=== PATIENT | female | born 1950 | race Caucasian/White ===

== ENCOUNTER → 2016-12-19 | Outpatient (CLI) | payer OTHER ==
[~2016-12-19] MED LIST: ESOM20CA PO; LEVO112T2 PO; METH10TA6 PO
[2016-12-19 12:44] LABS: HEMATOCRIT 43.4 % (34.6-47.8); HEMOGLOBIN 14.5 g/dL (11.7-16.4); WHITE BLOOD COUNT 6.2 x10^3/uL (3.4-10)
[2016-12-19 13:06] LABS: ASPARTATE AMINO TRANSFERASE 16 U/L (15-37); BLOOD UREA NITROGEN 20 mg/dL (7-18)
== END | disposition home or self-care (01) ==
LOC: CFH 07:00
PROVIDERS: ATTEND Family Medicine
DX: E03.2 Hypothyroidism due to medicaments and other exogenous substances (principal); R73.9 Hyperglycemia, unspecified; R53.83 Other fatigue
CPT/HCPCS: 36415; 80053; 80061; 84439; 84443; 84481; 85025

== ENCOUNTER → 2017-06-05 | Outpatient (CLI) | payer OTHER ==
[2017-06-05 12:56] LABS: FREE T4 (FREE THYROXINE) 1.33 ng/dL (0.76-1.46); THYROID STIMULATING HORMONE 3.3 mIU/L (0.358-3.740)
== END | disposition home or self-care (01) ==
LOC: CFH 07:04
PROVIDERS: ATTEND Family Medicine
DX: E03.2 Hypothyroidism due to medicaments and other exogenous substances (principal)
CPT/HCPCS: 36415; 84439; 84443

== ENCOUNTER 2019-04-21 06:21 | Emergency (ER) | payer OTHER ==
[~2019-04-21] VITALS: Ht 170.2 cm; Wt 48.0 kg
[2019-04-21 06:25] VITALS: BP 154/82
--- NOTE | 2019-04-21 06:54 | NUR ---
report given to gurmeet rojas
--- NOTE | 2019-04-21 07:00 | NUR ---
RECEIVED REPORT FROM [facility]. PT UPRIGHT ON GURNEY AWAKE & COMFORTABLE WITH RLE ELEVATED, RESPONDS APPROP TO STAFF, NAD AT REST, COMFORT MEASURES PROVIDED, CALL LIGHT WITHIN REACH.
[2019-04-21 07:10] LABS: ALBUMIN 2.9 g/dL (3.4-5.0); ANION GAP 8 mmol/L (5-15); CALCIUM 9.1 mg/dL (8.5-10.1); CHLORIDE 106 mmol/L (98-107)
[2019-04-21 07:23] LABS: ALANINE AMINOTRANSFERASE 12 U/L (12-78); ALKALINE PHOSPHATASE 98 U/L (45-117); BILIRUBIN,TOTAL 0.4 mg/dL (0.2-1.0); CREATININE 1.52 mg/dL (0.55-1.02); TOTAL PROTEIN 8.2 g/dL (6.4-8.2)
[2019-04-21 07:32] LABS: MEAN CORPUSCULAR HEMOGLOBIN 24.4 pg (27.0-34.8); MEAN CORPUSCULAR HGB CONC 31.4 g/dL (32.4-35.8); MEAN CORPUSCULAR VOLUME 77.7 fL (80-100); MEAN PLATELET VOLUME 8.4 fL (7.4-10.4); PLATELET COUNT 419 x10^3/uL (130-400); RED BLOOD COUNT 4.66 x10^6/uL (3.82-5.3); RED CELL DISTRIBUTION WIDTH 23.2 % (9.6-15.2)
[2019-04-21 07:55] LABS: ANISOCYTOSIS 1+; BASOPHILS # (AUTO) 0.05 x10^3/uL (0-0.1); BASOPHILS % (AUTO) 0 % (0-1); EOSINOPHILS # (AUTO) 0.11 x10^3/uL (0-0.4); EOSINOPHILS % (AUTO) 1 % (1-7); HYPOCHROMIA 1+; LYMPHOCYTES # (AUTO) 1.29 x10^3/uL (1-3.4); LYMPHOCYTES % (AUTO) 10 % (22-44); MD MORPH REVIEW ONLY; MICROCYTOSIS 1+; MONOCYTES # (AUTO) 0.94 x10^3/uL (0.2-0.8); MONOCYTES % (AUTO) 7 % (2-9); NEUTROPHILS # (AUTO) 10.26 x10^3/uL (1.8-6.8); NEUTROPHILS % (AUTO) 81 % (42-75)
[2019-04-21 07:56] LABS: <PLATELET ESTIMATE> INCREASED; <PLT MORPHOLOGY> NORMAL PLT MORPH; OVALOCYTES 1+
--- NOTE | 2019-04-21 08:44 | NUR ---
Patient given discharge instructions and Rx, they have confirmed that they understand the instructions. Patient ambulatory with steady gait.
== END 2019-04-21 08:48 | disposition home or self-care (01) ==
LOC: ED 07:24
DX: L03.115 Cellulitis of right lower limb (principal); J44.9 Chronic obstructive pulmonary disease, unspecified; F17.210 Nicotine dependence, cigarettes, uncomplicated; M79.661 Pain in right lower leg
CPT/HCPCS: 36415; 80053; 84439; 84443; 84550; 85025; 99284

== ENCOUNTER → 2019-05-20 | Outpatient (CLI) | payer OTHER ==
[2019-05-20 13:04] LABS: MICROSCOPIC AUTO
[2019-05-20 13:06] LABS: CHLORIDE 104 mmol/L (98-107); CULTURE INDICATED? YES
[2019-05-20 13:20] LABS: HCT (SEDRATE) 38.3 % (34.6-47.8)
[2019-05-20 13:21] LABS: BASOPHILS # (AUTO) 0.04 x10^3/uL (0-0.1); BASOPHILS % (AUTO) 1 % (0-1); EOSINOPHILS % (AUTO) 2 % (1-7); LYMPHOCYTES # (AUTO) 1.24 x10^3/uL (1-3.4); LYMPHOCYTES % (AUTO) 13 % (22-44); MD NO; MEAN CORPUSCULAR HEMOGLOBIN 24.7 pg (27.0-34.8); MEAN CORPUSCULAR HGB CONC 32.3 g/dL (32.4-35.8); MEAN CORPUSCULAR VOLUME 76.5 fL (80-100); MEAN PLATELET VOLUME 9.1 fL (7.4-10.4); MONOCYTES # (AUTO) 0.38 x10^3/uL (0.2-0.8); MONOCYTES % (AUTO) 4 % (2-9); NEUTROPHILS # (AUTO) 7.42 x10^3/uL (1.8-6.8); NEUTROPHILS % (AUTO) 80 % (42-75); PLATELET COUNT 361 x10^3/uL (130-400); RED BLOOD COUNT 4.92 x10^6/uL (3.82-5.3); RED CELL DISTRIBUTION WIDTH 21.1 % (9.6-15.2)
[2019-05-20 13:39] LABS: % IRON SATURATION 4 % (20-55); ALANINE AMINOTRANSFERASE 12 U/L (12-78); ALBUMIN 3.3 g/dL (3.4-5.0); ALKALINE PHOSPHATASE 103 U/L (45-117); ANION GAP 5 mmol/L (5-15); BILIRUBIN,TOTAL 0.3 mg/dL (0.2-1.0); CALCIUM 9.2 mg/dL (8.5-10.1); CREATININE 1.48 mg/dL (0.55-1.02); FOLATE LEVEL 5.4 ng/mL (3.1-17.5); FREE T4 (FREE THYROXINE) 1.13 ng/dL (0.76-1.46); IRON LEVEL 17 mcg/dL (50-170); TOTAL IRON BINDING CAPACITY 378 mcg/dL (250-450); TOTAL PROTEIN 8.4 g/dL (6.4-8.2)
== END | disposition home or self-care (01) ==
LOC: CFH 06:45
PROVIDERS: ATTEND Family Medicine
DX: M25.571 Pain in right ankle and joints of right foot (principal); E03.2 Hypothyroidism due to medicaments and other exogenous substances; D64.9 Anemia, unspecified; I10 Essential (primary) hypertension; R13.10 Dysphagia, unspecified
CPT/HCPCS: 36415; 80053; 81001; 82607; 82728; 82746; 83540; 83550; 84439; 84443; 84550; 85025; 85651; 86038; 86430; 87077; 87086

== ENCOUNTER → 2019-08-20 | Outpatient (CLI) | payer OTHER ==
[~2019-08-20] MED LIST changes: +OMNIPAQUE 350 MG/ML, 100ML BOTTLE ONE
== END | disposition home or self-care (01) ==
LOC: RAD 12:03
PROVIDERS: ATTEND Family Medicine
DX: N13.4 Hydroureter (principal); N13.30 Unspecified hydronephrosis; N20.0 Calculus of kidney
CPT/HCPCS: 74177; Q9967

== ENCOUNTER → 2019-08-20 | Outpatient (CLI) | payer OTHER ==
[~2019-08-20] MED LIST changes: -OMNIPAQUE 350 MG/ML, 100ML BOTTLE ONE
[2019-08-20 12:03] LABS: BASOPHILS # (AUTO) 0.11 x10^3/uL (0-0.1); BASOPHILS % (AUTO) 1 % (0-1); EOSINOPHILS % (AUTO) 2 % (1-7); LYMPHOCYTES # (AUTO) 1.29 x10^3/uL (1-3.4); LYMPHOCYTES % (AUTO) 14 % (22-44); MD NO; MEAN CORPUSCULAR HEMOGLOBIN 24.1 pg (27.0-34.8); MEAN CORPUSCULAR HGB CONC 32.5 g/dL (32.4-35.8); MEAN PLATELET VOLUME 8.6 fL (7.4-10.4); MONOCYTES # (AUTO) 0.29 x10^3/uL (0.2-0.8); MONOCYTES % (AUTO) 3 % (2-9); NEUTROPHILS # (AUTO) 7.58 x10^3/uL (1.8-6.8); NEUTROPHILS % (AUTO) 80 % (42-75); PLATELET COUNT 368 x10^3/uL (130-400); RED CELL DISTRIBUTION WIDTH 21.6 % (9.6-15.2)
[2019-08-20 12:04] LABS: HCT (SEDRATE) 37.5 % (34.6-47.8)
[2019-08-20 12:14] LABS: ALANINE AMINOTRANSFERASE 13 U/L (12-78); ALBUMIN 2.9 g/dL (3.4-5.0); ANION GAP 6 mmol/L (5-15); CALCIUM 8.6 mg/dL (8.5-10.1); CHLORIDE 110 mmol/L (98-107); CREATININE 1.26 mg/dL (0.55-1.02); IRON LEVEL 27 mcg/dL (50-170)
[2019-08-20 12:22] LABS: % IRON SATURATION 8 % (20-55); ALKALINE PHOSPHATASE 85 U/L (45-117); BILIRUBIN,TOTAL 0.4 mg/dL (0.2-1.0); FREE T4 (FREE THYROXINE) 1.42 ng/dL (0.76-1.46); TOTAL IRON BINDING CAPACITY 359 mcg/dL (250-450); TOTAL PROTEIN 7.9 g/dL (6.4-8.2)
== END | disposition home or self-care (01) ==
LOC: CFH 10:35
PROVIDERS: ATTEND Family Medicine
DX: D50.0 Iron deficiency anemia secondary to blood loss (chronic) (principal); R63.4 Abnormal weight loss; E03.2 Hypothyroidism due to medicaments and other exogenous substances; E87.0 Hyperosmolality and hypernatremia; R10.31 Right lower quadrant pain
CPT/HCPCS: 36415; 80053; 83540; 83550; 84439; 84443; 85025; 85651

== ENCOUNTER 2019-09-22 07:08 | Outpatient (CLI) | payer OTHER ==
[2019-09-22] MEDS ORDERED: GADOTERATE 7.5 MMOL/15 ML SYR ONE (08:34)
[2019-10-07] MEDS ORDERED: Vitamin C PO (09:41)
[2019-10-07] MEDS ORDERED: Iron PO (09:41)
[2019-10-07] MEDS ORDERED: Vitamin B PO (09:41)
== END 2019-09-22 23:59 | disposition home or self-care (01) ==
LOC: RAD 07:08
PROVIDERS: ATTEND Family Medicine
DX: N85.2 Hypertrophy of uterus (principal); D48.1 Neoplasm of uncertain behavior of connective and other soft tissue; K57.30 Diverticulosis of large intestine without perforation or abscess without bleeding
CPT/HCPCS: 72197; A9575

== ENCOUNTER 2019-10-08 10:12 | Day surgery (SDC) | payer OTHER ==
[~2019-10-08] VITALS: Ht 170.2 cm; Wt 48.8 kg
[~2019-10-08 10:12] MED LIST changes: +Iron PO; +Vitamin B PO; +Vitamin C PO
[2019-10-08] MEDS ORDERED: CHLORHEXIDINE 15 ML UDC ONE (10:53)
[2019-10-08 11:07] VITALS: BP 168/84
[2019-10-08] MEDS ORDERED: CHLORHEXIDINE 15 ML UDC MM ONE (11:30)
[2019-10-08] MEDS ORDERED: IBUP200C8 PO (11:38)
[2019-10-08 12:02] VITALS: BP 168/84
[2019-10-08] MEDS ORDERED: MIDAZOLAM 1 MG/ML, 2ML ONE (13:09)
[2019-10-08] MEDS ORDERED: FENTANYL PF 250 MCG/5ML ONE (13:10)
[2019-10-08] MEDS ORDERED: PROPOFOL 10 MG/ML, 20ML ONE (13:13)
[2019-10-08] MEDS ORDERED: CEFAZOLIN 1,000 MG ONE (13:13)
[2019-10-08] MEDS ORDERED: ONDANSETRON 2MG/ML, 2ML ONE ×2 (13:13→15:39)
[2019-10-08] MEDS ORDERED: SUCCINYLCHOLINE 20 MG/ML, 10ML ONE (13:13)
[2019-10-08] MEDS ORDERED: DEXAMETHASONE 4 MG/ML, 1ML ONE (13:13)
[2019-10-08] MEDS ORDERED: ALBUTEROL SULFATE 2.5 MG/3 ML NPPB PRN (14:30)
[2019-10-08] MEDS ORDERED: HYDROmorphone 1 MG/ML, 1ML INJ IVPush PRN (14:30)
[2019-10-08] MEDS ORDERED: hydrALAzine 20 MG/ML, 1ML IV PRN (14:30)
[2019-10-08] MEDS ORDERED: MIDAZOLAM 1 MG/ML, 2ML IV PRN (14:30)
[2019-10-08] MEDS ORDERED: LABETALOL 5MG/ML, 20ML IV PRN (14:30)
[2019-10-08] MEDS ORDERED: PROMETHAZINE 25 MG/ML, 1ML IVPush PRN (14:30)
[2019-10-08] MEDS ORDERED: OXYcodone 5 MG/5 ML ORAL.SOL UDC PO PRN (14:30)
[2019-10-08] MEDS ORDERED: DIAZEPAM 5 MG/ML, 2ML IVPush PRN (14:30)
[2019-10-08] MEDS ORDERED: DIPHENHYDRAMINE 50 MG/ML, 1ML IVPush PRN (14:30)
[2019-10-08] MEDS ORDERED: PROMETHAZINE 12.5 MG SUPP PR PRN (14:30)
[2019-10-08] MEDS ORDERED: MEPERIDINE/PF 25MG/0.5ML IVPush PRN (14:30)
[2019-10-08] MEDS ORDERED: EPHEDRINE 50 MG/ML, 1ML IVPush PRN (14:30)
[2019-10-08] MEDS ORDERED: FENTANYL PF 100 MCG/2ML IV PRN (14:30)
[2019-10-08] MEDS ORDERED: ONDANSETRON 2MG/ML, 2ML IVPush PRN (14:30)
[2019-10-08] MEDS ORDERED: ONDANSETRON 2MG/ML, 2ML IV PRN (15:00)
[2019-10-08] MEDS ORDERED: HYDROcodone/APAP 5/325 TABLET PO PRN (15:00)
[2019-10-08] MEDS ORDERED: FENTANYL PF 100 MCG/2ML ONE (15:07)
== END 2019-10-08 17:02 | disposition home or self-care (01) ==
LOC: OUT 10:12 → 4NE 16:03 → OUT 17:02
PROVIDERS: ATTEND Urology
DX: N20.1 Calculus of ureter (principal); Z11.59 Encounter for screening for other viral diseases; N13.5 Crossing vessel and stricture of ureter without hydronephrosis; K21.9 Gastro-esophageal reflux disease without esophagitis; F17.210 Nicotine dependence, cigarettes, uncomplicated; J44.9 Chronic obstructive pulmonary disease, unspecified; Z88.5 Allergy status to narcotic agent; Z88.0 Allergy status to penicillin; Z88.8 Allergy status to other drugs, medicaments and biological substances; Z88.1 Allergy status to other antibiotic agents; Z88.2 Allergy status to sulfonamides; Z79.899 Other long term (current) drug therapy; Z82.49 Family history of ischemic heart disease and other diseases of the circulatory system; Z80.1 Family history of malignant neoplasm of trachea, bronchus and lung; Z72.89 Other problems related to lifestyle; Z90.710 Acquired absence of both cervix and uterus
CPT/HCPCS: 52354; 74420; 87635; 88305; 93005; C1758; J0330; J0690; J1100; J2250; J2405; J2704; J3010; G0378

== ENCOUNTER → 2019-12-02 | Outpatient (CLI) | payer OTHER ==
[~2019-12-02] MED LIST changes: +ASCO500T8 PO; +CYAN1TAB29 PO; +IBUP200C8 PO; +IPRA4AER INH; +LEVO175T5 PO
[2019-12-02 12:39] LABS: MICROSCOPIC NOT IND
== END | disposition home or self-care (01) ==
LOC: STAR 10:58
PROVIDERS: ATTEND Urology
DX: Z01.818 Encounter for other preprocedural examination (principal); Z20.828 Contact with and (suspected) exposure to other viral communicable diseases; N13.30 Unspecified hydronephrosis
CPT/HCPCS: 36415; 81003; 87086; 87635; 93005

== ENCOUNTER 2019-12-06 06:46 | Day surgery (SDC) | payer OTHER ==
[~2019-12-06] VITALS: Ht 170.2 cm; Wt 49.4 kg
[2019-12-06] MEDS ORDERED: CEFAZOLIN PMX 1GM/50ML 50 ML IV STA (07:27)
[2019-12-06] MEDS ORDERED: SODIUM CHLORIDE 0.9% 1,000 ML IV SCH (07:27)
[2019-12-06 07:28] VITALS: BP 147/70
[2019-12-06 07:32] VITALS: BP 147/70
[2019-12-06] MEDS ORDERED: CHLORHEXIDINE 15 ML UDC ONE (07:37)
[2019-12-06] MEDS ORDERED: MIDAZOLAM 1 MG/ML, 5ML ONE (08:59)
[2019-12-06] MEDS ORDERED: NALOXONE 1 MG/ML, 2ML ONE (08:59)
[2019-12-06] MEDS ORDERED: FLUMAZENIL 0.1 MG/1 ML, 5ML ONE (08:59)
[2019-12-06] MEDS ORDERED: FENTANYL PF 100 MCG/2ML ONE ×2 (08:59)
[2019-12-06] MEDS ORDERED: LIDOCAINE 1%, 20ML ONE (09:09)
[2019-12-06] MEDS ORDERED: CHLORHEXIDINE 15 ML UDC MM ONE (11:00)
[2019-12-06] MEDS ORDERED: LACTATED RINGERS 1,000 ML IV ONE (11:00)
[2019-12-06] MEDS ORDERED: OXYcodone IR 5MG TABLET PO ONE (11:04)
[2019-12-06] MEDS ORDERED: ACETAMINOPHEN 500 MG TABLET PO STA (11:04)
[2019-12-06] MEDS ORDERED: FENTANYL PF 250 MCG/5ML ONE (12:47)
[2019-12-06] MEDS ORDERED: CEFTRIAXONE 1,000 MG ONE (12:56)
[2019-12-06] MEDS ORDERED: ONDANSETRON 2MG/ML, 2ML ONE (14:00)
[2019-12-06] MEDS ORDERED: SUCCINYLCHOLINE 20 MG/ML, 10ML ONE (14:00)
[2019-12-06] MEDS ORDERED: NEOSTIGMINE 1 MG/ML, 10ML ONE (14:00)
[2019-12-06] MEDS ORDERED: SUGAMMADEX 200 MG/2 ML IVPush ONE (14:00)
[2019-12-06] MEDS ORDERED: DEXAMETHASONE 4 MG/ML, 1ML ONE (14:00)
[2019-12-06] MEDS ORDERED: PROPOFOL 10 MG/ML, 20ML ONE (14:00)
[2019-12-06] MEDS ORDERED: CEFAZOLIN 1,000 MG ONE (14:00)
[2019-12-06] MEDS ORDERED: GLYCOPYRROLATE 0.2MG/1ML, 5ML ONE (14:00)
[2019-12-06] MEDS ORDERED: ROCURONIUM 10MG/ML,5ML ONE (14:00)
[2019-12-06] MEDS ORDERED: OMNIPAQUE 350 MG/ML, 50 ML BOTTLE ONE (14:15)
[2019-12-06] MEDS ORDERED: ONDANSETRON 2MG/ML, 2ML IV PRN (14:30)
[2019-12-06] MEDS ORDERED: OXYcodone/APAP 5/325MG TABLET PO PRN (14:30)
== END 2019-12-06 16:30 | disposition home or self-care (01) ==
LOC: RAD 06:46
PROVIDERS: ATTEND Urology
DX: N28.89 Other specified disorders of kidney and ureter (principal); N13.2 Hydronephrosis with renal and ureteral calculous obstruction; N73.9 Female pelvic inflammatory disease, unspecified; J44.9 Chronic obstructive pulmonary disease, unspecified; K21.9 Gastro-esophageal reflux disease without esophagitis; F17.210 Nicotine dependence, cigarettes, uncomplicated; Z88.2 Allergy status to sulfonamides; Z88.5 Allergy status to narcotic agent
CPT/HCPCS: 50433; 52354; 88305; 99156; 99157; C1727; C1751; C1758; C1769; C1894; C2625; J0690; J0696; J1100; J2250; J2405; J2704; J2710; J3010; J7030; J7120; Q9967; 74425; J0330; J2310

== ENCOUNTER → 2020-01-13 | Outpatient (CLI) | payer OTHER ==
[~2020-01-13] MED LIST changes: +FUROSEMIDE 20 MG/2 ML ONE
== END | disposition home or self-care (01) ==
LOC: RAD 10:30
PROVIDERS: ATTEND Urology
DX: N13.30 Unspecified hydronephrosis (principal)
CPT/HCPCS: 78708; A9562; J1940

== ENCOUNTER → 2020-03-13 | Outpatient (CLI) | payer OTHER ==
[~2020-03-13] MED LIST changes: -FUROSEMIDE 20 MG/2 ML ONE
[2020-03-13 09:34] LABS: BASOPHILS % (AUTO) 1 % (0-1); EOSINOPHILS % (AUTO) 2 % (1-7); LYMPHOCYTES % (AUTO) 28 % (22-44); MEAN CORPUSCULAR HEMOGLOBIN 28.3 pg (27.0-34.8); MEAN CORPUSCULAR HGB CONC 32.7 g/dL (32.4-35.8); MONOCYTES % (AUTO) 9 % (2-9); NEUTROPHILS % (AUTO) 61 % (42-75); PLATELET COUNT 173 x10^3/uL (130-400); RED BLOOD COUNT 5.08 x10^6/uL (3.82-5.3); RED CELL DISTRIBUTION WIDTH 18.9 % (9.6-15.2)
[2020-03-13 09:40] LABS: MD NO
[2020-03-13 09:42] LABS: INTERNATIONAL NORMALIZED RATIO 0.99 (0.93-1.1); PROTHROMBIN TIME 10.5 Seconds (9.6-11.5)
[2020-03-13 09:46] LABS: ALANINE AMINOTRANSFERASE 12 U/L (12-78); ALBUMIN 3.7 g/dL (3.4-5.0); ANION GAP 7 mmol/L (5-15); CALCIUM 8.9 mg/dL (8.5-10.1); CHLORIDE 110 mmol/L (98-107)
[2020-03-13 09:49] LABS: ALKALINE PHOSPHATASE 95 U/L (45-117); BILIRUBIN,TOTAL 0.4 mg/dL (0.2-1.0); TOTAL PROTEIN 7.8 g/dL (6.4-8.2)
[2020-03-13 10:00] LABS: MICROSCOPIC INDICATED
== END | disposition home or self-care (01) ==
LOC: STAR 07:29
PROVIDERS: ATTEND Urology
DX: Z01.812 Encounter for preprocedural laboratory examination (principal); U07.1 COVID-19; N19 Unspecified kidney failure; I51.7 Cardiomegaly
CPT/HCPCS: 36415; 80053; 81001; 85025; 85610; 87086; 87635; 93005

== ENCOUNTER 2020-04-21 07:40 | Outpatient (CLI) | payer OTHER ==
[2020-04-21 08:43] LABS: BASOPHILS % (AUTO) 1 % (0-1); EOSINOPHILS % (AUTO) 4 % (1-7); LYMPHOCYTES % (AUTO) 22 % (22-44); MEAN CORPUSCULAR HGB CONC 33.4 g/dL (32.4-35.8); MEAN PLATELET VOLUME 7.9 fL (7.4-10.4); MONOCYTES % (AUTO) 6 % (2-9); NEUTROPHILS % (AUTO) 67 % (42-75); PLATELET COUNT 289 x10^3/uL (130-400); RED CELL DISTRIBUTION WIDTH 16.7 % (9.6-15.2)
[2020-04-21 08:44] LABS: MD NO
[2020-04-21 08:53] LABS: ALANINE AMINOTRANSFERASE 19 U/L (12-78); ALBUMIN 3.9 g/dL (3.4-5.0); ANION GAP 6 mmol/L (5-15); CALCIUM 9.1 mg/dL (8.5-10.1); CHLORIDE 106 mmol/L (98-107); INTERNATIONAL NORMALIZED RATIO 0.96 (0.93-1.1); PROTHROMBIN TIME 10.2 Seconds (9.6-11.5)
[2020-04-21 08:56] LABS: ALKALINE PHOSPHATASE 91 U/L (45-117); BILIRUBIN,TOTAL 0.4 mg/dL (0.2-1.0); TOTAL PROTEIN 7.5 g/dL (6.4-8.2)
[2020-04-21] MEDS ORDERED: ACET-1600 PO (09:51)
[2020-04-21] MEDS ORDERED: [UNRECOGNIZED DRUG - OTHER] PO (09:51)
[2020-04-21] MEDS ORDERED: NICO-430 TP (09:51)
[2020-04-21] MEDS ORDERED: IPRA4AER INH (09:51)
[2020-04-21 09:57] LABS: MICROSCOPIC AUTO
== END 2020-04-21 23:59 | disposition home or self-care (01) ==
LOC: STAR 07:40
PROVIDERS: ATTEND Urology
DX: Z01.818 Encounter for other preprocedural examination (principal); N19 Unspecified kidney failure
CPT/HCPCS: 36415; 80053; 81001; 85025; 85610; 85730; 87086

== ENCOUNTER 2020-04-27 07:22 | Inpatient (IN) | payer OTHER ==
[~2020-04-27] VITALS: Ht 170.2 cm; Wt 55.0 kg
[~2020-04-27 07:22] MED LIST changes: +ACET-1600 PO; +NICO-430 TP; +[UNRECOGNIZED DRUG - OTHER] PO
[2020-04-27] MEDS ORDERED: CHLORHEXIDINE 15 ML UDC MM STA (07:36)
[2020-04-27] MEDS ORDERED: LACTATED RINGERS 1,000 ML IV SCH (08:00)
[2020-04-27] MEDS ORDERED: PROPOFOL 50 ML ONE (10:04)
[2020-04-27] MEDS ORDERED: FENTANYL PF 250 MCG/5ML ONE (10:04)
[2020-04-27] MEDS ORDERED: MIDAZOLAM 1 MG/ML, 2ML ONE (10:04)
[2020-04-27] MEDS ORDERED: EPINEPHRINE 1 MG/ML, 1ML ONE (10:26)
[2020-04-27] MEDS ORDERED: BUPIVACAINE/PF 0.5% ONE (10:26)
[2020-04-27] MEDS ORDERED: BUPIVACAINE/PF 0.25% ONE (10:35)
[2020-04-27] MEDS ORDERED: FENTANYL PF 100 MCG/2ML ONE (13:57)
[2020-04-27] MEDS ORDERED: OXYcodone 5 MG/5 ML ORAL.SOL UDC ONE (13:57)
[2020-04-27] MEDS: FENTANYL PF 100 MCG/2ML IV PRN ×4 (14:00→14:30)
[2020-04-27] MEDS ORDERED: LABETALOL 5MG/ML, 20ML IV PRN (14:30)
[2020-04-27] MEDS ORDERED: PROMETHAZINE 25 MG/ML, 1ML IVPush PRN (14:30)
[2020-04-27] MEDS ORDERED: MEPERIDINE/PF 25MG/0.5ML IVPush PRN (14:30)
[2020-04-27] MEDS ORDERED: HYDROmorphone 1 MG/ML, 1ML INJ IVPush PRN (14:30)
[2020-04-27] MEDS ORDERED: HALOPERIDOL 5 MG/ML IV PRN (14:30)
[2020-04-27] MEDS ORDERED: ALBUTEROL SULFATE 2.5 MG/3 ML NPPB PRN (14:30)
[2020-04-27] MEDS ORDERED: ONDANSETRON 2MG/ML, 2ML IVPush PRN (14:30)
[2020-04-27] MEDS ORDERED: LORazepam 2 MG/ML, 1ML IVPush PRN (14:30)
[2020-04-27] MEDS ORDERED: morphine SULFATE 10 MG/ML, 1ML IVPush PRN (14:30)
[2020-04-27] MEDS ORDERED: OXYcodone 5 MG/5 ML ORAL.SOL UDC PO PRN (14:30)
[2020-04-27] MEDS ORDERED: hydrALAzine 20 MG/ML, 1ML IV PRN (14:30)
[2020-04-27] MEDS ORDERED: HYDROmorphone 1 MG/ML, 1ML INJ ONE (15:14)
[2020-04-27] MEDS ORDERED: NICOTINE 21 MG/24 HR PATCH.TD24 TD SCH (16:00)
[2020-04-27] MEDS ORDERED: ALBUTEROL-IPRATROPIUM MDI INH INH PRN (16:00)
[2020-04-27] MEDS: POTASSIUM CHLORIDE 20 MEQ in D5%-0.45% NACL 1,000 ML IV SCH (17:18)
[2020-04-27] MEDS: HYDROcodone/APAP 5/325 TABLET PO PRN (17:42)
[2020-04-27] MEDS: ONDANSETRON 2MG/ML, 2ML IV PRN ×2 (18:14→23:42)
[2020-04-27 19:19] VITALS: BP 121/69
[2020-04-28 00:41] VITALS: BP 135/80
[2020-04-28 03:56] VITALS: BP 111/69
[2020-04-28 05:51] LABS: ANION GAP 7 mmol/L (5-15); CALCIUM 7.8 mg/dL (8.5-10.1); CHLORIDE 108 mmol/L (98-107); CREATININE 1.22 mg/dL (0.55-1.02)
[2020-04-28] MEDS ORDERED: PANTOPRAZOLE 20MG TABLET PO SCH (06:00)
[2020-04-28] MEDS ORDERED: LEVOTHYROXINE 175 MCG TABLET PO SCH (06:00)
[2020-04-28] MEDS: POTASSIUM CHLORIDE 20 MEQ in D5%-0.45% NACL 1,000 ML IV SCH (06:22)
[2020-04-28 07:28] VITALS: BP 119/69
[2020-04-28 13:04] VITALS: BP 128/79
[2020-04-28] MEDS: HYDROcodone/APAP 5/325 TABLET PO PRN (15:00)
== END 2020-04-28 15:32 | disposition home or self-care (01) | DRG 661 ==
LOC: ORIP 07:22 → 4NE 15:43 → DCLOUNGE 04-28 15:25
PROVIDERS: ADMIT Urology; ATTEND Urology
PROC: 0TB00ZZ Excision of Right Kidney, Open Approach (ICD-10-PCS; principal; 2020-04-27 09:30)
DX: N28.9 Disorder of kidney and ureter, unspecified (principal); K74.60 Unspecified cirrhosis of liver; Z88.6 Allergy status to analgesic agent; Z88.2 Allergy status to sulfonamides
CPT/HCPCS: 36415; S0020; 80048; 85018; 86850; 86900; 88307; C1729; G0378; J0171; J1170; J2250; J2405; J2704; J3010; J3480; C1760; J7120

== ENCOUNTER → 2020-07-27 | Outpatient (CLI) | payer OTHER ==
[2020-07-27 07:20] LABS: ANION GAP 4 mmol/L (5-15); CALCIUM 9.3 mg/dL (8.5-10.1); CHLORIDE 109 mmol/L (98-107); CREATININE 1.54 mg/dL (0.55-1.02)
== END | disposition home or self-care (01) ==
LOC: LAB 06:52
PROVIDERS: ATTEND Urology
DX: N13.30 Unspecified hydronephrosis (principal)
CPT/HCPCS: 36415; 80048

== ENCOUNTER → 2020-08-31 | Outpatient (CLI) | payer OTHER | END | disposition home or self-care (01) | LOC: RAD 07:28 | PROVIDERS: ATTEND Urology | DX: N19 Unspecified kidney failure (principal); Z90.5 Acquired absence of kidney | CPT/HCPCS: 76770 ==